=== PATIENT | male | born 1960 | race Caucasian/White ===

== ENCOUNTER 2016-10-08 20:25 | Emergency (ER) | payer BC ==
--- NOTE | ~2016-10-08 | ER ---
PATIENT'S NAME: LANA PICKENS [facility] AGE: 56 Y [address] ROOM: [place] [address] LOCATION: ED ADMIT DATE: 10/08/2016 ER/Outpatient Report DISCHARGE DATE: 10/08/2016 FAMILY PHYSICIAN: Ac Goodwin MD ATTENDING PHYSICIAN: Dariana Moss Time of Patient Arrival: 2024 hours. Time of Patient Evaluation: 2039 hours. CHIEF COMPLAINT: Abdominal/flank pain. HISTORY OF PRESENT ILLNESS: This is a 56-year-old male, who presents to the ER, who states he had a sudden onset of abdominal/flank pain about 3 hours prior to arrival. He states that his low back started hurting him in the flank areas and that would radiate around into the front, worse on the left side. He states it did make him feel nauseated and he had approximately 10 emesis with dry heaves after that. He has had no fever, no chills. He states he does have some urinary frequency. He states his abdomen is uncomfortable as well. It makes him feel short of breath. He states he had an episode of this in March in which he was seen in the clinic and they thought that he possibly could have passed a kidney stone at that time and this feels exactly like that. He states when he had that CAT scan done in March, they found some nodules on his lungs, and he was diagnosed with sarcoidosis. He states he has been doctoring with Dr. Goodwin for that. He describes his pain as sharp in nature and he did take some Naprosyn prior to arrival with no relief of his symptoms. ALLERGIES: NO KNOWN ALLERGIES. MEDICATIONS: Please see medication list in nurse's notes. PAST MEDICAL HISTORY: 1. He has sarcoidosis. 2. He has a history of kidney stones. PAST SURGICAL HISTORY: Hernia repair. SOCIAL HISTORY: Drinks alcohol occasionally. Denies any smoking use. REVIEW OF SYSTEMS: PATIENT'S NAME: LANA PICKENS [facility] AGE: 56 Y [address] ROOM: [place] [address] LOCATION: ED ADMIT DATE: 10/08/2016 ER/Outpatient Report DISCHARGE DATE: 10/08/2016 FAMILY PHYSICIAN: Ac Goodwin MD ATTENDING PHYSICIAN: Moss,Dariana A All systems reviewed were negative with the exception of those discussed in the HPI. PHYSICAL EXAMINATION: VITAL SIGNS: Height 6 feet stated, weight 95.7 kg taken, blood pressure is 175/77, pulse 57, respirations 24, temperature 96 degrees tympanically, and saturations 97% on room air. [place] Coma Score is 15. GENERAL: An alert, anxious appearing, 56-year-old, in moderate distress. HEENT: Head; normocephalic. He does display moist mucous membranes. Eyes; pupils are equal and reactive to light. LUNGS: Clear to auscultation bilaterally. No wheezes or crackles. HEART: Regular rate and rhythm. ABDOMEN: He does have CVA tenderness on the left. He has diffuse abdominal discomfort with palpation. No guarding or rebound tenderness. He has good bowel sounds throughout. No masses are palpated. EXTREMITIES: No clubbing or cyanosis. He has full range of motion of all limbs. LABORATORY DATA AND IMAGING STUDIES: CBC: White count is 9.4, hemoglobin is 13.4, and platelets are 197,000. CMS: Sodium is 140, potassium is 3.4, glucose is 133, BUN 16, and creatinine 1.1. Alkaline phosphatase is 74, AST is 65, ALT is 32, and estimated GFR is greater than 60. Amylase is 89, lipase is 209, CPK is 247, CK-MB is 4.2, and troponin I is less than 0.040. Second point of care, CPK is 224, CK-MB is 3.0, and troponin I is less than 0.04. H. pylori was negative. EKG shows sinus rhythm. Chest x-ray was negative for any infiltrate. We did do a CT scan per stone protocol. It does show that he has moderate amount of stool in the colon. No renal calculi and no hydronephrosis. No diverticulitis, normal appendix. He has some small stable intermittent nodules in his lungs. IMPRESSION: 1. Abdominal/flank pain. 2. History of sarcoidosis. ASSESSMENT AND PLAN: We did start an IV here in the emergency room. Did give him some IV fluids along with 4 mg of Zofran, 2 mg of morphine, and 30 mg of Toradol. This did improve his pain down to a 3. He states the only discomfort he is having now is kind of in his right flank area, but he states all the other pain went away. His abdomen remained nonacute at this time. I discussed the patient's care with Dr. Moss. We will dismiss him to home with a prescription for [place] to use as directed along with Zofran to use for nausea. We will send him home with some magnesium citrate to drink when he gets home. He needs to continue to push fluids. Monitor symptoms. I would like him to follow up with his primary care physician early next week. Return here to the emergency room if PATIENT'S NAME: LANA PICKENS [facility] AGE: 56 Y [address] ROOM: [place], [place] [address] LOCATION: ED ADMIT DATE: 10/08/2016 ER/Outpatient Report DISCHARGE DATE: 10/08/2016 FAMILY PHYSICIAN: Ac Goodwin MD ATTENDING PHYSICIAN: Dariana Moss any of his symptoms worsen. The patient understands and agrees with care. PAULINE BARKER PA-C FOR MD FRED ARMANDO/cleol /[id number] d: t: 10/12/16 1158, OUTPATIENT REPORT
[~2016-10-08 20:25] MED LIST: ULTRAM50 MG PO; ZOFRAN4 MG PO
[2016-10-08 21:06] LABS: BILIRUBIN URINE NEGATIVE (NEGATIVE); BLOOD URINE NEGATIVE /UL (NEGATIVE); COLOR URINE YELLOW (YELLOW); GLUCOSE URINE NEGATIVE (NEGATIVE); KETONE URINE 150 mg/dL (NEGATIVE); LEUKOCYTES URINE NEGATIVE /UL (NEGATIVE); NITRITE URINE NEGATIVE (NEGATIVE); PROTEIN URINE NEGATIVE (NEGATIVE); SPEC GRAVITY URINE 1.025 (1.003-1.035); TURBIDITY URINE CLEAR (CLEAR); UROBILINOGEN URINE NORMAL (NORMAL)
[2016-10-08 21:07] LABS: BASOPHIL # 0.1 K/uL (0.0-0.2); BASOPHIL % 0.6 %; EOSINOPHIL # 0.1 K/uL (0.0-0.5); EOSINOPHIL % 1.4 %; HEMATOCRIT 40.8 % (37.0-53.0); HEMOGLOBIN 13.4 g/dL (12.0-17.0); IMMATURE GRANULOCYTE % 0.2 %; LYMPHOCYTE # 0.7 K/uL (0.8-4.0); LYMPHOCYTE % 7.9 %; MCH 29.2 pg (27.0-34.0); MCHC 32.8 gm/dL (32.0-36.5); MCV 88.9 fl (83.0-98.0); MONOCYTE # 0.4 K/uL (0.0-1.0); MONOCYTE % 3.9 %; MPV 10.8 fl (9.4-12.4); NEUTROPHIL # (ANC) 8.1 K/uL (1.4-9.0); NRBC % 0 /100WBC (0-0.00); PLATELET COUNT 197 K/uL (150-450); RBC 4.59 M/uL (4.00-6.00); RDW-CV 13.1 % (11.9-14.6); WBC 9.4 K/uL (4.0-11.0)
[2016-10-08 21:22] LABS: ALBUMIN 3.9 gm/dL (3.5-5.0); ALK PHOS 74 IU/L (33-138); ALT 32 IU/L (12-78); ANION GAP 12.4 (10.0-19.0); AST 65 IU/L (10-40); BLOOD UREA NITROGEN 16 mg/dL (6-24); CALCIUM 8.8 mg/dL (8.5-10.5); CHLORIDE 107 mMol/L (96-110); CO2 24 mMol/L (22-32); CREATININE 1.1 mg/dL (0.6-1.3); ESTIMATED GFR (MDRD EQUATION) > 60; POTASSIUM 3.4 mMol/L (3.7-5.1); SODIUM 140 mMol/L (135-145); TOTAL BILIRUBIN 0.5 mg/dL (0.0-1.5); TOTAL PROTEIN 7.6 g/dL (6.0-8.4)
[2016-10-08 22:14] LABS: CPK 247 IU/L (35-332)
[2016-10-08 23:11] LABS: CPK 224 IU/L (35-332)
[2016-11-29] MEDS ORDERED: HYDROCHLOROTH12.5 MG PO (10:41)
== END 2016-10-08 23:31 | disposition disaster alternative care site (69) ==
LOC: GMED 20:25
PROVIDERS: Physician Assistant Medical
DX: R10.9 Unspecified abdominal pain (principal); Z87.442 Personal history of urinary calculi; Z98.890 Other specified postprocedural states; Z79.899 Other long term (current) drug therapy
CPT/HCPCS: J1885; J2270; J2405; J7030

== ENCOUNTER → 2016-11-15 | Outpatient (CLI) | payer BC ==
[~2016-11-15] MED LIST changes: +HYDROCHLOROTH12.5 MG PO
== END | disposition disaster alternative care site (69) ==
LOC: GRAD 15:32
DX: D86.0 Sarcoidosis of lung (principal); R91.8 Other nonspecific abnormal finding of lung field

== ENCOUNTER → 2016-11-29 | Outpatient (CLI) | payer BC | LOC: GKIC 12:08 | DX: M51.36 Other intervertebral disc degeneration, lumbar region (principal) ==

== ENCOUNTER → 2016-12-02 | Day surgery (SDC) | payer BC ==
[~2016-12-02] VITALS: Ht 182.9 cm; Wt 94.0 kg
--- NOTE | ~2016-12-02 | OR ---
PATIENT'S NAME: LANA PICKENS [facility] AGE: 56 Y [address] ROOM: [place] [address] LOCATION: [facility] ADMIT DATE: 12/02/2016 OR/Procedure Report DISCHARGE DATE: FAMILY PHYSICIAN: ROBERTH GALLEGOS MD ATTENDING PHYSICIAN: OMAR GALLEGOS SURGEON: Omar Gallegos MD [employer]: DATE OF PROCEDURE: 12/02/2016 PROCEDURE: Bronchoscopy with bronchoalveolar lavage and endobronchial biopsy. INDICATION FOR PROCEDURE: Suspected pulmonary sarcoidosis with CT scan showing bilateral upper lobe reticulonodular infiltrates. DESCRIPTION OF THE PROCEDURE: The patient was brought into the endoscopy suite after obtaining appropriate consent. He was placed under general anesthesia with LMA. Preoperative CBC and INR were checked, both were within normal limits. A flexible bronchoscope was advanced through the LMA after passing the vocal cord, it was advanced up to the eligio and topical lidocaine was instilled. Systematic inspection was carried up to the subsegmental level bilaterally, the airway was widely patent, no gross mucosal inflammation noticed, no endobronchial lesions were seen. The scope was wedged into the apical segment of the right upper lobe and a bronchoalveolar lavage was done with instillation of 40 mL of normal saline with return of 15 mL. Bronchoalveolar lavage was also performed in the left upper lobe anterior segment using 40 mL of normal saline with return of around 20 mL of BAL fluid. Endobronchial mucosal samples were obtained twice from the right upper lobe and from the secondary eligio of the right upper lobe and also from the secondary eligio of the left upper lobe. Minimal oozing was noted after obtaining endobronchial mucosal biopsy from the left upper lobe, which was treated with cold saline and topical epinephrine. Second look was taken after 5 minutes, there was no more oozing on the left upper lobe with complete accomplishment of hemostasis. Estimated blood loss was around 5 mL. The LMA was taken out and the patient was transferred for postoperative observation at least for 2 hours. We will obtain Gram stain with culture, cell count with differential, fungal panel, typical mycobacterial panel, CD4 CD8 ratio. PATIENT'S NAME: LANA PICKENS [facility] AGE: 56 Y [address] ROOM: [place] [address] LOCATION: GEND ADMIT DATE: 12/02/2016 OR/Procedure Report DISCHARGE DATE: FAMILY PHYSICIAN: ROBERTH GALLEGOS MD ATTENDING PHYSICIAN: OMAR GALLEGOS MD MG/modl /[id number] d: 12/02/162142 t: 12/08/16 1720, OPERATIVE SUMMARY
[2016-12-02 12:38] LABS: BASOPHIL # 0.1 K/uL (0.0-0.2); EOSINOPHIL # 0.3 K/uL (0.0-0.5); EOSINOPHIL % 5.1 %; HEMATOCRIT 40.6 % (37.0-53.0); HEMOGLOBIN 13.7 g/dL (12.0-17.0); IMMATURE GRANULOCYTE % 0.2 %; LYMPHOCYTE # 0.8 K/uL (0.8-4.0); MCH 29.3 pg (27.0-34.0); MCHC 33.7 gm/dL (32.0-36.5); MCV 86.9 fl (83.0-98.0); MONOCYTE # 0.4 K/uL (0.0-1.0); MONOCYTE % 8.7 %; MPV 10.6 fl (9.4-12.4); NEUTROPHIL # (ANC) 3.5 K/uL (1.4-9.0); NRBC % 0 /100WBC (0-0.00); PLATELET COUNT 196 K/uL (150-450); RBC 4.67 M/uL (4.00-6.00); RDW-CV 13.1 % (11.9-14.6); WBC 5.1 K/uL (4.0-11.0)
[2016-12-02 12:46] LABS: INR - (THERAPEUTIC) 0.98 (0.92-1.07); PROTIME 10.3 SECONDS (9.8-11.4)
== END ==
LOC: GPOC 11-29 13:00 → GOPP 11-30 07:00 → GEND 11-30 07:00 → GPOC 11-30 11:00 → GEND 12:08
PROVIDERS: Internal Medicine Critical Care Medicine
PROC: 0B9G8ZX Drainage of Left Upper Lung Lobe, Via Natural or Artificial Opening Endoscopic, Diagnostic (ICD-10-PCS; principal; 2016-12-02)
PROC: 0BB88ZX Excision of Left Upper Lobe Bronchus, Via Natural or Artificial Opening Endoscopic, Diagnostic (ICD-10-PCS; 2016-12-02)
DX: J84.10 Pulmonary fibrosis, unspecified (principal); E83.50 Unspecified disorder of calcium metabolism; Z87.442 Personal history of urinary calculi; Z98.890 Other specified postprocedural states
CPT/HCPCS: J0171; J2001; J7030